=== PATIENT | female | born 1965 | race Caucasian/White ===

== ENCOUNTER 2020-01-10 15:55 | Emergency (ER) | payer OTHER ==
[~2020-01-10] VITALS: Ht 172.7 cm; Wt 62.1 kg
[2020-01-10 16:19] LABS: ABSOLUTE MONOCYTES 0.3 thou/uL (0.0-1.2); ABSOLUTE NEUTROPHILS 3.6 thou/uL (1.6-8.1); BASOPHILS 0.8 %; EOSINOPHILS 0.1 %; HEMATOCRIT 40.7 % (37.0-47.0); HEMOGLOBIN 14.1 gm/dL (12.0-15.0); LYMPHOCYTES 20.3 %; MCHC 34.6 g/dL (28.0-37.0); MCV 95.3 fL (80.0-100.0); MONOCYTES 6.4 %; MPV 9.6 fl. (7.2-11.1); NUCLEATED RBCS 0 /100WBC; PLATELET COUNT* 143 thou/uL (150-400); POLYS 72.4 %; RBC 4.27 mil/uL (4.20-5.00); RDW-CV 13.5 % (10.5-14.5)
[2020-01-10 16:28] LABS: CALCIUM 9.8 mg/dL (8.5-10.1); CREATININE 0.8 mg/dL (0.6-1.3); POTASSIUM 3.9 mmol/L (3.5-5.1)
[2020-01-10 16:34] LABS: APTT 25.9 Seconds (25.0-31.3); INR 1.1; PROTIME 11.1 Seconds (9.20-11.50)
[2020-01-10 16:42] LABS: ALBUMIN 4.3 g/dL (3.4-5.0); CK-MB MASS 0.6 ng/mL (<0.5-3.6); TOTAL BILIRUBIN 0.8 mg/dL (<0.1-1.0); TOTAL PROTEIN 7.4 g/dL (6.4-8.2)
[2020-01-10 17:12] VITALS: BP 113/49
--- NOTE | 2020-01-11 10:34 | EKG ---
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: [facility] : 1965 Requested By: Everton Lauren Order Number: [id number] MD: David Sky Measurements Intervals [place] Rate: 95 P: 81 WA: 154 QRS: 55 QRSD: 86 T: 56 QT: 353 QTc: 444 Interpretive Statements Sinus rhythm Baseline wander in lead(s) II,III,aVR,aVF No previous ECG available for comparison Electronically Signed On 01-11-2020 10:34:05 CDT by David Sky [email or web address] <ELECTRONICALLY SIGNED> By: David Sky MD, [facility] 01/11/20 1034 1602 1602 David Sky MD, [facility] /EPI
== END 2020-01-10 17:13 | disposition home or self-care (01) ==
LOC: M.ERS 15:55
PROVIDERS: Family Medicine
DX: R07.89 Other chest pain (principal); Z20.828 Contact with and (suspected) exposure to other viral communicable diseases; B34.9 Viral infection, unspecified; Z98.51 Tubal ligation status; Z90.710 Acquired absence of both cervix and uterus; Z91.013 Allergy to seafood